=== PATIENT | female | born 1945 | race Caucasian/White ===

== ENCOUNTER 2020-03-06 18:00 | Inpatient (IN) ==
[2020-03-06 19:15] LABS: ABG Base Excess 3.1 MMOL/L (-2.5-2.5); ABG HCO3 27.1 MMOL/L (20-26); ABG Oxygen Saturation 94.2 % (95-100); ABG PCO2 39.1 MM HG (35-48); ABG PO2 70.7 MM HG (80-95); ABG TCO2 24.1 MMOL/L (23-27)
[2020-03-06 19:36] LABS: Basophils % 0.2 % (0.0-0.8); Hematocrit 35.7 VOL% (35.7-47.0); Hemoglobin 11.8 GM/DL (12.0-16.0); Immature Granulocytes % 0.4 %; Immature Granulocytes Absolute 0.02 #; Lymphocytes % 20.5 % (21.3-54.2); Mean Corpuscular HGB Conc 33.1 GM/DL (32-36); Mean Corpuscular Volume 89.3 FL (87-102); Mean Platelet Volume 10.9 FL (9.6-12.0); Neutrophils % 70.9 % (38.7-73.9); Platelet Count 169 T/CUMM (130-400); Red Cell Distribution Width 12.8 % (9.3-17.3); White Blood Count 4.7 T/CUMM (4-12)
[2020-03-06 20:06] LABS: Alanine Aminotransferase 38 U/L (13-56); Albumin 3.2 G/DL (3.4-5.0); Alkaline Phosphatase 87 U/L (45-117); Aspartate Amino Transferase 36 U/L (0-37); Bilirubin,Total < 0.39 MG/DL (0.2-1.0); Blood Urea Nitrogen 17 MG/DL (7-18); Calcium 8.3 MG/DL (8.5-10.1); Estimated Glom Filtration Rate 51 ML/MIN; Ferritin 224.8 ng/ml (8-252); Glucose 160 MG/DL (74-106); Total Protein 7.2 G/DL (6.4-8.3)
[2020-03-06] MEDS ORDERED: AZITHROMYCIN INJ 500 MG in SODIUM CHLORIDE 0.9% 250 ML IV STA (20:17)
[2020-03-06] MEDS ORDERED: DEXAMETHASONE 10 MG/1 ML VIAL IV STA (20:17)
[2020-03-06] MEDS ORDERED: POTASSIUM CHLORIDE 20 MEQ/15 ML UDCUP PO ONE (20:17)
[2020-03-06] MEDS: SODIUM CHLORIDE 0.9% 1,000 ML IV SCH (21:00)
[2020-03-06] MEDS ORDERED: AZITHROMYCIN INJ 500 MG in SODIUM CHLORIDE 0.9% 250 ML IV SCH (21:00)
[2020-03-07] MEDS ORDERED: SODIUM CHLORIDE 0.9% 1,000 ML IV STA (00:56)
[2020-03-07] MEDS: SODIUM CHLORIDE 0.9% 1,000 ML IV SCH ×3 (05:59→21:47)
[2020-03-07 06:29] LABS: Basophils % 0.3 % (0.0-0.8); Hematocrit 34.3 VOL% (35.7-47.0); Hemoglobin 11.2 GM/DL (12.0-16.0); Immature Granulocytes % 1.2 %; Immature Granulocytes Absolute 0.04 #; Lymphocytes # 0.7 10*3/uL (1.4-4.0); Lymphocytes % 22.1 % (21.3-54.2); Mean Corpuscular HGB Conc 32.7 GM/DL (32-36); Mean Corpuscular Volume 92.2 FL (87-102); Mean Platelet Volume 11.4 FL (9.6-12.0); Monocytes % 5.7 % (1.7-12.7); Neutrophils % 70.7 % (38.7-73.9); Platelet Count 136 T/CUMM (130-400); Red Blood Count 3.72 MC/CUMM (3.8-5.5); Red Cell Distribution Width 13.1 % (9.3-17.3); White Blood Count 3.3 T/CUMM (4-12)
[2020-03-07 06:30] LABS: Alanine Aminotransferase 32 U/L (13-56); Albumin 2.7 G/DL (3.4-5.0); Alkaline Phosphatase 83 U/L (45-117); Aspartate Amino Transferase 30 U/L (0-37); Bilirubin,Total < 0.39 MG/DL (0.2-1.0); Blood Urea Nitrogen 16 MG/DL (7-18); Calcium 7.8 MG/DL (8.5-10.1); Estimated Glom Filtration Rate 58 ML/MIN; Glucose 206 MG/DL (74-106); Osmolality,Calculated 289.1 MOS/KG (273-304); Total Protein 6.6 G/DL (6.4-8.3)
[2020-03-07] MEDS ORDERED: DEXAMETHASONE 10 MG/1 ML VIAL IV SCH (09:00)
[2020-03-07] MEDS ORDERED: LORATADINE 10 MG TABLET PO PRN (09:23)
[2020-03-07] MEDS: REMDESIVIR 200 MG in SODIUM CHLORIDE 0.9% 210 ML IV ONE ×2 (11:12→13:20)
[2020-03-07] MEDS: DEXAMETHASONE 10 MG/1 ML VIAL IV SCH (13:20)
[2020-03-07] MEDS: PANTOPRAZOLE 40 MG TABLET PO SCH (13:20)
[2020-03-07] MEDS ORDERED: DICYCLOMINE 10 MG CAPSULE PO PRN (21:07)
[2020-03-07] MEDS ORDERED: ChlordiazePOXIDE/CLIDINIUM 5-2.5 MG CAPSULE PO SCH ×2 (21:24→21:30)
[2020-03-07] MEDS: ONDANSETRON 4 MG TABLET PO SCH (21:46)
[2020-03-07] MEDS: LOSARTAN/HCTZ 50-12.5 MG TABLET PO SCH (21:46)
[2020-03-07] MEDS: AZITHROMYCIN INJ 500 MG in SODIUM CHLORIDE 0.9% 250 ML IV SCH (22:22)
[2020-03-07] MEDS: SIMVASTATIN 20 MG TABLET PO SCH (22:22)
[2020-03-07] MEDS: ASPIRIN EC 81 MG TABLET PO SCH (22:22)
[2020-03-07] MEDS: CLORAZEPATE 3.75 MG TABLET PO PRN (22:23)
[2020-03-08] MEDS: ACETAMINOPHEN 325 MG TABLET PO PRN ×3 (00:13→20:20)
[2020-03-08] MEDS: ONDANSETRON 4 MG TABLET PO SCH ×4 (00:14→17:51)
[2020-03-08] MEDS: ONDANSETRON 4 MG/2 ML VIAL IV PRN ×2 (00:14→05:41)
[2020-03-08] MEDS: SODIUM CHLORIDE 0.9% 1,000 ML IV SCH (03:48)
[2020-03-08 05:57] LABS: Albumin 2.8 G/DL (3.4-5.0); Bilirubin,Total 0.4 MG/DL (0.2-1.0); Calcium 7.2 MG/DL (8.5-10.1); Osmolality,Calculated 286.1 MOS/KG (273-304); Total Protein 6.9 G/DL (6.4-8.3)
[2020-03-08 06:08] LABS: Calcium 7.4 MG/DL (8.5-10.1); Osmolality,Calculated 286.1 MOS/KG (273-304)
[2020-03-08 06:11] LABS: Basophils % 0.3 % (0.0-0.8); Eosinophils % 0.1 % (0.00-10.9); Hematocrit 39.2 VOL% (35.7-47.0); Hemoglobin 11.8 GM/DL (12.0-16.0); Immature Granulocytes % 0.5 %; Immature Granulocytes Absolute 0.04 #; Lymphocytes # 2.4 10*3/uL (1.4-4.0); Mean Corpuscular HGB Conc 30.1 GM/DL (32-36); Mean Corpuscular Volume 96.6 FL (87-102); Mean Platelet Volume 11.4 FL (9.6-12.0); Monocytes % 4.7 % (1.7-12.7); Neutrophils % 63.4 % (38.7-73.9); Platelet Count 163 T/CUMM (130-400); Red Blood Count 4.06 MC/CUMM (3.8-5.5); White Blood Count 7.7 T/CUMM (4-12)
[2020-03-08] MEDS ORDERED: NON-FORMULARY MEDICATION (Omeprazole 20 mg capsule,delayed release(DR/EC)) PO SCH (09:00)
[2020-03-08] MEDS ORDERED: ChlordiazePOXIDE/CLIDINIUM 5-2.5 MG CAPSULE PO SCH ×2 (09:00)
[2020-03-08] MEDS: CHOLECALCIFEROL 5,000 UNIT TABLET PO SCH (10:04)
[2020-03-08] MEDS: DICLOFENAC 1.3% PATCH 5/PACK TRANSDERM PRN (10:04)
[2020-03-08] MEDS: metFORMIN 500 MG TABLET PO SCH ×2 (10:04→17:51)
[2020-03-08] MEDS: CETIRIZINE 10 MG TABLET PO SCH (10:04)
[2020-03-08] MEDS: CLORAZEPATE 3.75 MG TABLET PO PRN ×2 (10:05→20:20)
[2020-03-08] MEDS: LOSARTAN/HCTZ 50-12.5 MG TABLET PO SCH (10:05)
[2020-03-08] MEDS: PANTOPRAZOLE 40 MG TABLET PO SCH (10:05)
[2020-03-08] MEDS: DEXAMETHASONE 10 MG/1 ML VIAL IV SCH (10:05)
[2020-03-08] MEDS: atenoloL 50 MG TABLET PO SCH (10:05)
[2020-03-08] MEDS: REMDESIVIR 100 MG in SODIUM CHLORIDE 0.9% 100 ML IV SCH (10:07)
[2020-03-08] MEDS: cycloSPORINE OPH EMUL 1 VIAL BOTH EYES SCH (11:42)
[2020-03-08] MEDS: INSULIN LISPRO 100 UNIT/ML SUBCUT SCH ×3 (11:43→21:00)
[2020-03-08] MEDS: FAMOTIDINE 20 MG TABLET PO SCH (11:43)
[2020-03-08] MEDS: ASCORBIC ACID 500 MG TABLET PO SCH (11:43)
[2020-03-08] MEDS: ZINC GLUCONATE 50 MG TABLET PO SCH (11:43)
[2020-03-08] MEDS: MAGNESIUM SULF INJ 2 GM, POTASSIUM CHLORIDE INJ 20 MEQ in SODIUM CHLORIDE 0.9% 1,000 ML IV SCH ×2 (13:00→21:01)
[2020-03-08] MEDS: SIMVASTATIN 20 MG TABLET PO SCH (20:20)
[2020-03-08] MEDS: ASPIRIN EC 81 MG TABLET PO SCH (20:20)
[2020-03-08] MEDS: AZITHROMYCIN INJ 500 MG in SODIUM CHLORIDE 0.9% 250 ML IV SCH (20:20)
[2020-03-09] MEDS: ONDANSETRON 4 MG TABLET PO SCH ×4 (00:05→17:07)
[2020-03-09 00:26] LABS: Bacteria,Urine Occasional /HPF (Few); Bilirubin,Urine Negative (Negative); Blood, Urine Small mg/dL (Negative); Glucose,Urine (UA) Negative (Negative); Ketones,Urine Negative (Negative); Mucus,Urine Occasional /LPF (Occasional); Nitrite,Urine Negative (Negative); Protein,Urine 30 MG/DL; RBC,Urine 2 /HPF (0-4); Squamous Epithelial Cell,Urine Occasional /HPF (0-10); Urine Appearance CLEAR (Clear); Urine Color Yellow (Yellow); Urine Specific Gravity 1.013 (1.001-1.035); Urine Urobilinogen < 2.0 EU/DL (0.2-1.0); WBC,Urine 6 /HPF (0-6)
[2020-03-09 06:25] LABS: Basophils % 0.3 % (0.0-0.8); Eosinophils % 0.1 % (0.00-10.9); Hematocrit 41.8 VOL% (35.7-47.0); Hemoglobin 12.7 GM/DL (12.0-16.0); Immature Granulocytes % 1.2 %; Immature Granulocytes Absolute 0.15 #; Lymphocytes # 0.7 10*3/uL (1.4-4.0); Lymphocytes % 5.4 % (21.3-54.2); Mean Corpuscular HGB Conc 30.4 GM/DL (32-36); Mean Platelet Volume 10.9 FL (9.6-12.0); Monocytes % 3.7 % (1.7-12.7); Neutrophils % 89.3 % (38.7-73.9); Platelet Count 214 T/CUMM (130-400); Red Blood Count 4.31 MC/CUMM (3.8-5.5); Red Cell Distribution Width 13.6 % (9.3-17.3); White Blood Count 12.9 T/CUMM (4-12)
[2020-03-09 06:40] LABS: Albumin 2.7 G/DL (3.4-5.0); Bilirubin,Total 0.6 MG/DL (0.2-1.0); Calcium 7.7 MG/DL (8.5-10.1); Osmolality,Calculated 283.3 MOS/KG (273-304); Total Protein 7.1 G/DL (6.4-8.3)
[2020-03-09 09:02] LABS: Band Neutrophils 3 % (0-10); Lymphocytes 4 % (20-55); Metamyelocytes 1 %; Platelet Estimate Normal; Segmented Neutrophils 85 % (50-85); Total Cells Counted 100
[2020-03-09] MEDS: INSULIN LISPRO 100 UNIT/ML SUBCUT SCH ×4 (09:16→22:24)
[2020-03-09] MEDS: CHOLECALCIFEROL 5,000 UNIT TABLET PO SCH (09:20)
[2020-03-09] MEDS: PANTOPRAZOLE 40 MG TABLET PO SCH (09:20)
[2020-03-09] MEDS: atenoloL 50 MG TABLET PO SCH (09:20)
[2020-03-09] MEDS: ASCORBIC ACID 500 MG TABLET PO SCH (09:20)
[2020-03-09] MEDS: FAMOTIDINE 20 MG TABLET PO SCH (09:20)
[2020-03-09] MEDS: metFORMIN 500 MG TABLET PO SCH ×2 (09:20→17:07)
[2020-03-09] MEDS: ZINC GLUCONATE 50 MG TABLET PO SCH (09:20)
[2020-03-09] MEDS: LOSARTAN/HCTZ 50-12.5 MG TABLET PO SCH (09:20)
[2020-03-09] MEDS: CETIRIZINE 10 MG TABLET PO SCH (09:21)
[2020-03-09] MEDS ORDERED: FUROSEMIDE 40 MG/4 ML VIAL IV ONE (09:22)
[2020-03-09 09:24] LABS: ABG Base Excess 0.5 MMOL/L (-2.5-2.5); ABG HCO3 24.8 MMOL/L (20-26); ABG Oxygen Saturation 95.2 % (95-100); ABG PCO2 57.7 MM HG (35-48); ABG PH 7.297 (7.35-7.45); ABG PO2 80.1 MM HG (80-95); ABG TCO2 25.4 MMOL/L (23-27)
[2020-03-09] MEDS: MAGNESIUM SULF INJ 2 GM, POTASSIUM CHLORIDE INJ 20 MEQ in SODIUM CHLORIDE 0.9% 1,000 ML IV SCH (09:46)
[2020-03-09] MEDS: REMDESIVIR 100 MG in SODIUM CHLORIDE 0.9% 100 ML IV SCH (11:26)
[2020-03-09] MEDS: DEXAMETHASONE 10 MG/1 ML VIAL IV SCH (11:26)
[2020-03-09] MEDS: cycloSPORINE OPH EMUL 1 VIAL BOTH EYES SCH (11:26)
[2020-03-09] MEDS: ASPIRIN EC 81 MG TABLET PO SCH (20:17)
[2020-03-09] MEDS: SIMVASTATIN 20 MG TABLET PO SCH (20:17)
[2020-03-09] MEDS: AZITHROMYCIN INJ 500 MG in SODIUM CHLORIDE 0.9% 250 ML IV SCH (20:18)
[2020-03-09] MEDS: ACETAMINOPHEN 325 MG TABLET PO PRN (21:00)
[2020-03-10] MEDS: ONDANSETRON 4 MG TABLET PO SCH ×4 (01:24→18:02)
[2020-03-10 04:45] LABS: Basophils % 0.2 % (0.0-0.8); Eosinophils % 0.5 % (0.00-10.9); Hematocrit 38.3 VOL% (35.7-47.0); Hemoglobin 11.5 GM/DL (12.0-16.0); Immature Granulocytes % 0.6 %; Immature Granulocytes Absolute 0.05 #; Lymphocytes # 1.7 10*3/uL (1.4-4.0); Lymphocytes % 20.7 % (21.3-54.2); Mean Corpuscular Volume 99.7 FL (87-102); Mean Platelet Volume 11.6 FL (9.6-12.0); Monocytes % 6.3 % (1.7-12.7); Neutrophils % 71.7 % (38.7-73.9); Platelet Count 181 T/CUMM (130-400); Red Blood Count 3.84 MC/CUMM (3.8-5.5); Red Cell Distribution Width 13.4 % (9.3-17.3); White Blood Count 8.4 T/CUMM (4-12)
[2020-03-10 05:17] LABS: Allen Test Positive; Pt O2 Delivery Device BIPAP
[2020-03-10 05:18] LABS: Albumin 2.1 G/DL (3.4-5.0); Bilirubin,Total 0.8 MG/DL (0.2-1.0); Calcium 7.8 MG/DL (8.5-10.1); Osmolality,Calculated 285.1 MOS/KG (273-304); Total Protein 6.4 G/DL (6.4-8.3)
[2020-03-10 05:24] LABS: ABG Base Excess 8.5 MMOL/L (-2.5-2.5); ABG HCO3 32.2 MMOL/L (20-26); ABG Oxygen Saturation 94.2 % (95-100); ABG PCO2 51.7 MM HG (35-48); ABG PO2 69.1 MM HG (80-95); ABG TCO2 30.9 MMOL/L (23-27)
[2020-03-10] MEDS: INSULIN LISPRO 100 UNIT/ML SUBCUT SCH ×4 (07:06→20:18)
[2020-03-10] MEDS: ENOXAPARIN 40 MG/0.4 ML SYRINGE SUBCUT SCH ×2 (08:39→20:16)
[2020-03-10] MEDS: ASCORBIC ACID 500 MG TABLET PO SCH (08:40)
[2020-03-10] MEDS: LOSARTAN/HCTZ 50-12.5 MG TABLET PO SCH (08:40)
[2020-03-10] MEDS: DEXAMETHASONE 10 MG/1 ML VIAL IV SCH (08:40)
[2020-03-10] MEDS: atenoloL 50 MG TABLET PO SCH (08:41)
[2020-03-10] MEDS: CHOLECALCIFEROL 5,000 UNIT TABLET PO SCH (08:41)
[2020-03-10] MEDS: CETIRIZINE 10 MG TABLET PO SCH (08:41)
[2020-03-10] MEDS: FAMOTIDINE 20 MG TABLET PO SCH (08:41)
[2020-03-10] MEDS ORDERED: SODIUM CHLORIDE 0.9% 1,000 ML IV PRN (08:42)
[2020-03-10] MEDS: ZINC GLUCONATE 50 MG TABLET PO SCH (09:08)
[2020-03-10] MEDS: cycloSPORINE OPH EMUL 1 VIAL BOTH EYES SCH (09:10)
[2020-03-10] MEDS: REMDESIVIR 100 MG in SODIUM CHLORIDE 0.9% 100 ML IV SCH (11:14)
[2020-03-10] MEDS ORDERED: POTASSIUM PHOSPHATE 30 MMOL in SODIUM CHLORIDE 0.9% 250 ML IV ONE (17:00)
[2020-03-10] MEDS: ASPIRIN EC 81 MG TABLET PO SCH (20:18)
[2020-03-10] MEDS: SIMVASTATIN 20 MG TABLET PO SCH (20:18)
[2020-03-11] MEDS: ONDANSETRON 4 MG TABLET PO SCH ×5 (00:32→23:58)
[2020-03-11] MEDS: AZITHROMYCIN INJ 500 MG in SODIUM CHLORIDE 0.9% 250 ML IV SCH (02:35)
[2020-03-11 04:07] LABS: Allen Test Positive; Pt O2 Delivery Device BIPAP
[2020-03-11 04:20] LABS: ABG Base Excess 8.3 MMOL/L (-2.5-2.5); ABG HCO3 31.9 MMOL/L (20-26); ABG Oxygen Saturation 92.6 % (95-100); ABG PCO2 54.8 MM HG (35-48); ABG PH 7.413 (7.35-7.45); ABG PO2 67.5 MM HG (80-95); ABG TCO2 30.4 MMOL/L (23-27)
[2020-03-11] MEDS: INSULIN LISPRO 100 UNIT/ML SUBCUT SCH ×4 (07:57→20:01)
[2020-03-11] MEDS: FAMOTIDINE 20 MG TABLET PO SCH (08:01)
[2020-03-11] MEDS: CETIRIZINE 10 MG TABLET PO SCH (08:01)
[2020-03-11] MEDS: ENOXAPARIN 40 MG/0.4 ML SYRINGE SUBCUT SCH ×2 (08:01→20:00)
[2020-03-11] MEDS: atenoloL 50 MG TABLET PO SCH (08:01)
[2020-03-11] MEDS: DEXAMETHASONE 10 MG/1 ML VIAL IV SCH (08:01)
[2020-03-11] MEDS: ZINC GLUCONATE 50 MG TABLET PO SCH (08:01)
[2020-03-11] MEDS: ASCORBIC ACID 500 MG TABLET PO SCH (08:01)
[2020-03-11] MEDS: LOSARTAN/HCTZ 50-12.5 MG TABLET PO SCH (08:02)
[2020-03-11] MEDS: CHOLECALCIFEROL 5,000 UNIT TABLET PO SCH (08:02)
[2020-03-11] MEDS: cycloSPORINE OPH EMUL 1 VIAL BOTH EYES SCH (08:02)
[2020-03-11] MEDS: REMDESIVIR 100 MG in SODIUM CHLORIDE 0.9% 100 ML IV SCH (08:05)
[2020-03-11 09:03] LABS: Basophils % 0.1 % (0.0-0.8); Eosinophils % 0.1 % (0.00-10.9); Hematocrit 36.1 VOL% (35.7-47.0); Hemoglobin 11.4 GM/DL (12.0-16.0); Immature Granulocytes % 0.6 %; Immature Granulocytes Absolute 0.06 #; Lymphocytes % 10.2 % (21.3-54.2); Mean Corpuscular HGB Conc 31.6 GM/DL (32-36); Mean Corpuscular Volume 93.3 FL (87-102); Mean Platelet Volume 11.8 FL (9.6-12.0); Monocytes % 5.1 % (1.7-12.7); Neutrophils % 83.9 % (38.7-73.9); Platelet Count 147 T/CUMM (130-400); Red Blood Count 3.87 MC/CUMM (3.8-5.5); Red Cell Distribution Width 13.2 % (9.3-17.3); White Blood Count 9.8 T/CUMM (4-12)
[2020-03-11 09:32] LABS: Albumin 2.1 G/DL (3.4-5.0); Bilirubin,Total 0.5 MG/DL (0.2-1.0); Calcium 8.4 MG/DL (8.5-10.1); Osmolality,Calculated 289.1 MOS/KG (273-304); Total Protein 6.7 G/DL (6.4-8.3)
[2020-03-11] MEDS: DICLOFENAC 1.3% PATCH 5/PACK TRANSDERM PRN (11:53)
[2020-03-11] MEDS: SIMVASTATIN 20 MG TABLET PO SCH (20:01)
[2020-03-11] MEDS: ASPIRIN EC 81 MG TABLET PO SCH (20:01)
[2020-03-12] MEDS ORDERED: BENZOCAINE/MENTHOL LOZENGE 18/BOX PO PRN (00:35)
[2020-03-12] MEDS ORDERED: PHENOL 1.4% THROAT SPRAY 177 ML BOTTLE PO PRN (00:35)
[2020-03-12 02:40] LABS: ABG Base Excess 10.2 MMOL/L (-2.5-2.5); ABG HCO3 36.7 MMOL/L (20-26); ABG Oxygen Saturation 89.1 % (95-100); ABG PCO2 59.6 MM HG (35-48); ABG PH 7.407 (7.35-7.45); ABG TCO2 38.5 MMOL/L (23-27)
[2020-03-12] MEDS ORDERED: AZITHROMYCIN INJ 500 MG in SODIUM CHLORIDE 0.9% 250 ML IV SCH (03:00)
[2020-03-12 05:17] LABS: Basophils % 0.1 % (0.0-0.8); Hematocrit 35.5 VOL% (35.7-47.0); Hemoglobin 11.3 GM/DL (12.0-16.0); Immature Granulocytes % 0.7 %; Immature Granulocytes Absolute 0.06 #; Lymphocytes % 11.1 % (21.3-54.2); Mean Corpuscular HGB Conc 31.8 GM/DL (32-36); Mean Corpuscular Volume 92.9 FL (87-102); Mean Platelet Volume 11.3 FL (9.6-12.0); Monocytes % 6.4 % (1.7-12.7); Neutrophils % 81.7 % (38.7-73.9); Platelet Count 241 T/CUMM (130-400); Red Blood Count 3.82 MC/CUMM (3.8-5.5); Red Cell Distribution Width 12.6 % (9.3-17.3); White Blood Count 8.7 T/CUMM (4-12)
[2020-03-12] MEDS: ONDANSETRON 4 MG TABLET PO SCH ×3 (05:22→18:04)
[2020-03-12 06:04] LABS: Albumin 2.1 G/DL (3.4-5.0); Bilirubin,Total 0.9 MG/DL (0.2-1.0); Calcium 8.4 MG/DL (8.5-10.1); Total Protein 6.6 G/DL (6.4-8.3)
[2020-03-12] MEDS: INSULIN LISPRO 100 UNIT/ML SUBCUT SCH ×4 (07:37→21:59)
[2020-03-12] MEDS: ENOXAPARIN 40 MG/0.4 ML SYRINGE SUBCUT SCH ×2 (08:13→21:58)
[2020-03-12] MEDS: DEXAMETHASONE 10 MG/1 ML VIAL IV SCH (08:14)
[2020-03-12] MEDS: atenoloL 50 MG TABLET PO SCH (08:16)
[2020-03-12] MEDS: ASCORBIC ACID 500 MG TABLET PO SCH (08:16)
[2020-03-12] MEDS: ZINC GLUCONATE 50 MG TABLET PO SCH (08:16)
[2020-03-12] MEDS: CETIRIZINE 10 MG TABLET PO SCH (08:16)
[2020-03-12] MEDS: cycloSPORINE OPH EMUL 1 VIAL BOTH EYES SCH (08:16)
[2020-03-12] MEDS: FAMOTIDINE 20 MG TABLET PO SCH (08:16)
[2020-03-12] MEDS: LOSARTAN/HCTZ 50-12.5 MG TABLET PO SCH (08:16)
[2020-03-12] MEDS: CHOLECALCIFEROL 5,000 UNIT TABLET PO SCH (08:16)
[2020-03-12] MEDS: cefTRIAXone 1,000 MG in SYRINGE 1 EACH IV SCH (16:50)
[2020-03-12] MEDS: CLORAZEPATE 3.75 MG TABLET PO PRN (17:45)
[2020-03-12] MEDS: SIMVASTATIN 20 MG TABLET PO SCH (21:58)
[2020-03-12] MEDS: ASPIRIN EC 81 MG TABLET PO SCH (21:58)
[2020-03-13] MEDS: ONDANSETRON 4 MG TABLET PO SCH ×4 (00:30→17:22)
[2020-03-13 04:20] LABS: ABG HCO3 35.6 MMOL/L (20-26); ABG Oxygen Saturation 88.4 % (95-100); ABG PCO2 58.4 MM HG (35-48); ABG PH 7.431 (7.35-7.45); ABG PO2 58.9 MM HG (80-95); ABG TCO2 34.7 MMOL/L (23-27)
[2020-03-13 06:27] LABS: Basophils % 0.1 % (0.0-0.8); Eosinophils % 0.1 % (0.00-10.9); Hematocrit 33.6 VOL% (35.7-47.0); Hemoglobin 11.2 GM/DL (12.0-16.0); Immature Granulocytes % 0.9 %; Immature Granulocytes Absolute 0.12 #; Lymphocytes # 1.3 10*3/uL (1.4-4.0); Lymphocytes % 10.1 % (21.3-54.2); Mean Corpuscular HGB Conc 33.3 GM/DL (32-36); Mean Corpuscular Volume 89.6 FL (87-102); Mean Platelet Volume 9.8 FL (9.6-12.0); Monocytes % 6.9 % (1.7-12.7); Neutrophils % 81.9 % (38.7-73.9); Platelet Count 319 T/CUMM (130-400); Red Blood Count 3.75 MC/CUMM (3.8-5.5); Red Cell Distribution Width 12.3 % (9.3-17.3)
[2020-03-13 06:48] LABS: Calcium 8.4 MG/DL (8.5-10.1); Osmolality,Calculated 286.3 MOS/KG (273-304)
[2020-03-13] MEDS: INSULIN LISPRO 100 UNIT/ML SUBCUT SCH ×4 (07:47→20:02)
[2020-03-13] MEDS: LOSARTAN/HCTZ 50-12.5 MG TABLET PO SCH (08:31)
[2020-03-13] MEDS: ENOXAPARIN 40 MG/0.4 ML SYRINGE SUBCUT SCH ×2 (08:31→20:01)
[2020-03-13] MEDS: DEXAMETHASONE 10 MG/1 ML VIAL IV SCH (08:31)
[2020-03-13] MEDS: FAMOTIDINE 20 MG TABLET PO SCH (08:31)
[2020-03-13] MEDS: ZINC GLUCONATE 50 MG TABLET PO SCH (08:33)
[2020-03-13] MEDS: CHOLECALCIFEROL 5,000 UNIT TABLET PO SCH (08:33)
[2020-03-13] MEDS: CETIRIZINE 10 MG TABLET PO SCH (08:33)
[2020-03-13] MEDS: cycloSPORINE OPH EMUL 1 VIAL BOTH EYES SCH (08:33)
[2020-03-13] MEDS: ASCORBIC ACID 500 MG TABLET PO SCH (08:33)
[2020-03-13] MEDS: atenoloL 50 MG TABLET PO SCH (08:33)
[2020-03-13] MEDS ORDERED: FUROSEMIDE 40 MG/4 ML VIAL IV ONE (09:39)
[2020-03-13] MEDS: CLORAZEPATE 3.75 MG TABLET PO PRN (12:00)
[2020-03-13] MEDS: ALBUTEROL INHALER 18 GM INH SCH ×3 (14:03→20:02)
[2020-03-13] MEDS: cefTRIAXone 1,000 MG in SYRINGE 1 EACH IV SCH (16:30)
[2020-03-13] MEDS: ASPIRIN EC 81 MG TABLET PO SCH (20:02)
[2020-03-13] MEDS: SIMVASTATIN 20 MG TABLET PO SCH (20:02)
[2020-03-13] MEDS: ALPRAZolam 0.25 MG TABLET PO PRN (22:10)
[2020-03-14] MEDS: ALBUTEROL INHALER 18 GM INH SCH ×4 (00:10→18:15)
[2020-03-14] MEDS: ONDANSETRON 4 MG TABLET PO SCH ×6 (00:10→23:01)
[2020-03-14 04:16] LABS: Basophils % 0.1 % (0.0-0.8); Eosinophils % 0.4 % (0.00-10.9); Hematocrit 36.8 VOL% (35.7-47.0); Hemoglobin 12.2 GM/DL (12.0-16.0); Immature Granulocytes Absolute 0.11 #; Lymphocytes # 1.4 10*3/uL (1.4-4.0); Lymphocytes % 12.3 % (21.3-54.2); Mean Corpuscular HGB Conc 33.2 GM/DL (32-36); Mean Corpuscular Volume 88.7 FL (87-102); Monocytes % 6.3 % (1.7-12.7); Neutrophils % 79.9 % (38.7-73.9); Platelet Count 352 T/CUMM (130-400); Red Blood Count 4.15 MC/CUMM (3.8-5.5); Red Cell Distribution Width 12.1 % (9.3-17.3); White Blood Count 11.4 T/CUMM (4-12)
[2020-03-14 04:41] LABS: Calcium 8.5 MG/DL (8.5-10.1)
[2020-03-14 04:44] LABS: Osmolality,Calculated 277.1 MOS/KG (273-304)
[2020-03-14 04:50] LABS: ABG Base Excess 19.9 MMOL/L (-2.5-2.5); ABG HCO3 46.3 MMOL/L (20-26); ABG Oxygen Saturation 97.3 % (95-100); ABG PCO2 60.3 MM HG (35-48); ABG PH 7.503 (7.35-7.45); ABG PO2 98.8 MM HG (80-95); ABG TCO2 48.1 MMOL/L (23-27); Allen Test Positive; Pt O2 Delivery Device BIPAP
[2020-03-14] MEDS ORDERED: FUROSEMIDE 40 MG/4 ML VIAL IV ONE (08:00)
[2020-03-14] MEDS: INSULIN LISPRO 100 UNIT/ML SUBCUT SCH ×4 (08:11→21:12)
[2020-03-14] MEDS: DEXAMETHASONE 10 MG/1 ML VIAL IV SCH (08:39)
[2020-03-14] MEDS: cycloSPORINE OPH EMUL 1 VIAL BOTH EYES SCH (08:40)
[2020-03-14] MEDS: ENOXAPARIN 40 MG/0.4 ML SYRINGE SUBCUT SCH ×2 (08:40→20:37)
[2020-03-14] MEDS: LOSARTAN/HCTZ 50-12.5 MG TABLET PO SCH (08:41)
[2020-03-14] MEDS: ZINC GLUCONATE 50 MG TABLET PO SCH (08:41)
[2020-03-14] MEDS: CHOLECALCIFEROL 5,000 UNIT TABLET PO SCH (08:41)
[2020-03-14] MEDS: FAMOTIDINE 20 MG TABLET PO SCH (08:42)
[2020-03-14] MEDS: ASCORBIC ACID 500 MG TABLET PO SCH (08:42)
[2020-03-14] MEDS: atenoloL 50 MG TABLET PO SCH (08:42)
[2020-03-14] MEDS: CETIRIZINE 10 MG TABLET PO SCH (09:39)
[2020-03-14] MEDS: POTASSIUM CHLORIDE 20 MEQ TABLET PO PRN ×3 (16:30→20:37)
[2020-03-14] MEDS: cefTRIAXone 1,000 MG in SYRINGE 1 EACH IV SCH (16:50)
[2020-03-14] MEDS: SIMVASTATIN 20 MG TABLET PO SCH (20:37)
[2020-03-14] MEDS: ASPIRIN EC 81 MG TABLET PO SCH (20:37)
[2020-03-14] MEDS: ALPRAZolam 0.25 MG TABLET PO PRN (22:49)
[2020-03-15] MEDS: ALBUTEROL INHALER 18 GM INH SCH ×4 (01:47→18:00)
[2020-03-15 03:05] LABS: ABG Base Excess 20.4 MMOL/L (-2.5-2.5); ABG HCO3 47.2 MMOL/L (20-26); ABG Oxygen Saturation 93.6 % (95-100); ABG PH 7.499 (7.35-7.45); ABG PO2 69.4 MM HG (80-95); ABG TCO2 49.1 MMOL/L (23-27); Allen Test Positive; Pt O2 Delivery Device BIPAP
[2020-03-15 04:37] LABS: Basophils % 0.2 % (0.0-0.8); Eosinophils # 0.2 10*3/uL (0.0-0.87); Eosinophils % 1.6 % (0.00-10.9); Hematocrit 39.4 VOL% (35.7-47.0); Hemoglobin 12.8 GM/DL (12.0-16.0); Immature Granulocytes % 1.2 %; Immature Granulocytes Absolute 0.15 #; Lymphocytes # 1.9 10*3/uL (1.4-4.0); Lymphocytes % 14.5 % (21.3-54.2); Mean Corpuscular HGB Conc 32.5 GM/DL (32-36); Mean Corpuscular Volume 89.7 FL (87-102); Mean Platelet Volume 10.1 FL (9.6-12.0); Monocytes % 4.7 % (1.7-12.7); Neutrophils % 77.8 % (38.7-73.9); Platelet Count 375 T/CUMM (130-400); Red Blood Count 4.39 MC/CUMM (3.8-5.5); Red Cell Distribution Width 12.2 % (9.3-17.3); White Blood Count 12.8 T/CUMM (4-12)
[2020-03-15 05:00] LABS: Albumin 2.2 G/DL (3.4-5.0); Bilirubin,Total 0.5 MG/DL (0.2-1.0); Calcium 9.1 MG/DL (8.5-10.1); Osmolality,Calculated 279.7 MOS/KG (273-304); Total Protein 7.5 G/DL (6.4-8.3)
[2020-03-15] MEDS: ONDANSETRON 4 MG TABLET PO SCH ×4 (06:30→23:24)
[2020-03-15] MEDS: INSULIN LISPRO 100 UNIT/ML SUBCUT SCH ×4 (07:07→21:02)
[2020-03-15] MEDS: FAMOTIDINE 20 MG TABLET PO SCH (08:27)
[2020-03-15] MEDS: atenoloL 50 MG TABLET PO SCH (08:27)
[2020-03-15] MEDS: DEXAMETHASONE 10 MG/1 ML VIAL IV SCH (08:27)
[2020-03-15] MEDS: ENOXAPARIN 40 MG/0.4 ML SYRINGE SUBCUT SCH ×2 (08:27→20:36)
[2020-03-15] MEDS: cycloSPORINE OPH EMUL 1 VIAL BOTH EYES SCH (08:27)
[2020-03-15] MEDS: LOSARTAN/HCTZ 50-12.5 MG TABLET PO SCH (08:27)
[2020-03-15] MEDS: ASCORBIC ACID 500 MG TABLET PO SCH (08:28)
[2020-03-15] MEDS: CHOLECALCIFEROL 5,000 UNIT TABLET PO SCH (08:28)
[2020-03-15] MEDS: CETIRIZINE 10 MG TABLET PO SCH (08:28)
[2020-03-15] MEDS: ZINC GLUCONATE 50 MG TABLET PO SCH (08:28)
[2020-03-15] MEDS: acetaZOLAMIDE 250 MG TABLET PO SCH ×2 (12:54→20:37)
[2020-03-15] MEDS: cefTRIAXone 1,000 MG in SYRINGE 1 EACH IV SCH (16:24)
[2020-03-15] MEDS: ASPIRIN EC 81 MG TABLET PO SCH (20:37)
[2020-03-15] MEDS: SIMVASTATIN 20 MG TABLET PO SCH (20:37)
[2020-03-15] MEDS: ALPRAZolam 0.25 MG TABLET PO PRN (20:59)
[2020-03-16] MEDS: ALBUTEROL INHALER 18 GM INH SCH ×4 (00:27→18:20)
[2020-03-16 04:07] LABS: Basophils % 0.2 % (0.0-0.8); Eosinophils # 0.1 10*3/uL (0.0-0.87); Eosinophils % 1.3 % (0.00-10.9); Hemoglobin 12.5 GM/DL (12.0-16.0); Immature Granulocytes % 1.8 %; Immature Granulocytes Absolute 0.19 #; Lymphocytes # 1.2 10*3/uL (1.4-4.0); Mean Corpuscular HGB Conc 32.1 GM/DL (32-36); Mean Corpuscular Volume 90.9 FL (87-102); Mean Platelet Volume 10.4 FL (9.6-12.0); Monocytes % 5.1 % (1.7-12.7); Neutrophils % 80.6 % (38.7-73.9); Platelet Count 381 T/CUMM (130-400); Red Blood Count 4.29 MC/CUMM (3.8-5.5); Red Cell Distribution Width 12.4 % (9.3-17.3); White Blood Count 10.6 T/CUMM (4-12)
[2020-03-16 04:22] LABS: Calcium 8.8 MG/DL (8.5-10.1); Osmolality,Calculated 277.1 MOS/KG (273-304)
[2020-03-16 04:34] LABS: ABG HCO3 33.7 MMOL/L (20-26); ABG Oxygen Saturation 97.1 % (95-100); ABG PCO2 54.5 MM HG (35-48); ABG PH 7.432 (7.35-7.45); ABG PO2 98.7 MM HG (80-95); ABG TCO2 31.9 MMOL/L (23-27); Allen Test Positive; Pt O2 Delivery Device BIPAP
[2020-03-16] MEDS: ONDANSETRON 4 MG TABLET PO SCH ×3 (06:28→17:36)
[2020-03-16] MEDS: INSULIN LISPRO 100 UNIT/ML SUBCUT SCH ×4 (07:33→20:55)
[2020-03-16] MEDS: ENOXAPARIN 40 MG/0.4 ML SYRINGE SUBCUT SCH ×2 (08:00→20:55)
[2020-03-16] MEDS: ZINC GLUCONATE 50 MG TABLET PO SCH (08:00)
[2020-03-16] MEDS: acetaZOLAMIDE 250 MG TABLET PO SCH ×2 (08:00→20:55)
[2020-03-16] MEDS: FAMOTIDINE 20 MG TABLET PO SCH (08:00)
[2020-03-16] MEDS: DEXAMETHASONE 10 MG/1 ML VIAL IV SCH (08:00)
[2020-03-16] MEDS: CHOLECALCIFEROL 5,000 UNIT TABLET PO SCH (08:01)
[2020-03-16] MEDS: CETIRIZINE 10 MG TABLET PO SCH (08:01)
[2020-03-16] MEDS: cycloSPORINE OPH EMUL 1 VIAL BOTH EYES SCH (08:01)
[2020-03-16] MEDS: ASCORBIC ACID 500 MG TABLET PO SCH (08:01)
[2020-03-16] MEDS: atenoloL 50 MG TABLET PO SCH (08:01)
[2020-03-16] MEDS: LOSARTAN/HCTZ 50-12.5 MG TABLET PO SCH (08:02)
[2020-03-16] MEDS: POTASSIUM CHLORIDE 20 MEQ TABLET PO PRN (11:31)
[2020-03-16] MEDS: cefTRIAXone 1,000 MG in SYRINGE 1 EACH IV SCH (16:10)
[2020-03-16] MEDS: SIMVASTATIN 20 MG TABLET PO SCH (20:55)
[2020-03-16] MEDS: ASPIRIN EC 81 MG TABLET PO SCH (20:55)
[2020-03-17] MEDS: ALBUTEROL INHALER 18 GM INH SCH ×4 (00:45→18:18)
[2020-03-17] MEDS: ONDANSETRON 4 MG TABLET PO SCH ×4 (00:45→17:50)
[2020-03-17 03:10] LABS: ABG Base Excess 6.2 MMOL/L (-2.5-2.5); ABG Oxygen Saturation 94.7 % (95-100); ABG PCO2 47.4 MM HG (35-48); ABG PH 7.431 (7.35-7.45); ABG PO2 76.6 MM HG (80-95); ABG TCO2 27.9 MMOL/L (23-27); Allen Test Positive; Pt O2 Delivery Device Other
[2020-03-17 05:22] LABS: Basophils % 0.2 % (0.0-0.8); Eosinophils # 0.3 10*3/uL (0.0-0.87); Eosinophils % 2.9 % (0.00-10.9); Hematocrit 37.3 VOL% (35.7-47.0); Hemoglobin 12.1 GM/DL (12.0-16.0); Immature Granulocytes % 1.3 %; Immature Granulocytes Absolute 0.14 #; Lymphocytes # 1.6 10*3/uL (1.4-4.0); Lymphocytes % 15.4 % (21.3-54.2); Mean Corpuscular HGB Conc 32.4 GM/DL (32-36); Mean Corpuscular Volume 90.1 FL (87-102); Mean Platelet Volume 10.5 FL (9.6-12.0); Monocytes % 6.6 % (1.7-12.7); Neutrophils % 73.6 % (38.7-73.9); Platelet Count 409 T/CUMM (130-400); Red Blood Count 4.14 MC/CUMM (3.8-5.5); Red Cell Distribution Width 12.3 % (9.3-17.3); White Blood Count 10.5 T/CUMM (4-12)
[2020-03-17 05:39] LABS: Calcium 8.6 MG/DL (8.5-10.1)
[2020-03-17] MEDS: INSULIN LISPRO 100 UNIT/ML SUBCUT SCH ×4 (10:04→21:15)
[2020-03-17] MEDS: CHOLECALCIFEROL 5,000 UNIT TABLET PO SCH (10:20)
[2020-03-17] MEDS: CETIRIZINE 10 MG TABLET PO SCH (10:20)
[2020-03-17] MEDS: ENOXAPARIN 40 MG/0.4 ML SYRINGE SUBCUT SCH ×2 (10:20→21:15)
[2020-03-17] MEDS: acetaZOLAMIDE 250 MG TABLET PO SCH (10:20)
[2020-03-17] MEDS: ZINC GLUCONATE 50 MG TABLET PO SCH (10:20)
[2020-03-17] MEDS: FAMOTIDINE 20 MG TABLET PO SCH (10:20)
[2020-03-17] MEDS: DEXAMETHASONE 10 MG/1 ML VIAL IV SCH (10:20)
[2020-03-17] MEDS: cycloSPORINE OPH EMUL 1 VIAL BOTH EYES SCH (10:20)
[2020-03-17] MEDS: ASCORBIC ACID 500 MG TABLET PO SCH (10:20)
[2020-03-17] MEDS: atenoloL 50 MG TABLET PO SCH (11:45)
[2020-03-17] MEDS: cefTRIAXone 1,000 MG in SYRINGE 1 EACH IV SCH (15:41)
[2020-03-17] MEDS: ASPIRIN EC 81 MG TABLET PO SCH (21:15)
[2020-03-17] MEDS: SIMVASTATIN 20 MG TABLET PO SCH (21:15)
[2020-03-18] MEDS: ONDANSETRON 4 MG TABLET PO SCH ×4 (00:45→18:20)
[2020-03-18] MEDS: ALBUTEROL INHALER 18 GM INH SCH ×4 (01:45→20:45)
[2020-03-18 04:41] LABS: Basophils % 0.1 % (0.0-0.8); Eosinophils # 0.2 10*3/uL (0.0-0.87); Eosinophils % 2.5 % (0.00-10.9); Hematocrit 37.2 VOL% (35.7-47.0); Hemoglobin 11.9 GM/DL (12.0-16.0); Immature Granulocytes % 1.2 %; Immature Granulocytes Absolute 0.11 #; Lymphocytes # 1.4 10*3/uL (1.4-4.0); Mean Corpuscular Volume 90.1 FL (87-102); Mean Platelet Volume 10.2 FL (9.6-12.0); Monocytes % 8.6 % (1.7-12.7); Neutrophils % 71.6 % (38.7-73.9); Platelet Count 400 T/CUMM (130-400); Red Blood Count 4.13 MC/CUMM (3.8-5.5); Red Cell Distribution Width 12.5 % (9.3-17.3); White Blood Count 8.9 T/CUMM (4-12)
[2020-03-18 05:11] LABS: Calcium 8.7 MG/DL (8.5-10.1); Osmolality,Calculated 275.2 MOS/KG (273-304)
[2020-03-18] MEDS: INSULIN LISPRO 100 UNIT/ML SUBCUT SCH ×4 (08:30→20:45)
[2020-03-18] MEDS: FAMOTIDINE 20 MG TABLET PO SCH (09:01)
[2020-03-18] MEDS: cycloSPORINE OPH EMUL 1 VIAL BOTH EYES SCH (09:01)
[2020-03-18] MEDS: ASCORBIC ACID 500 MG TABLET PO SCH (09:01)
[2020-03-18] MEDS: atenoloL 50 MG TABLET PO SCH (09:01)
[2020-03-18] MEDS: ZINC GLUCONATE 50 MG TABLET PO SCH (09:01)
[2020-03-18] MEDS: CETIRIZINE 10 MG TABLET PO SCH (09:01)
[2020-03-18] MEDS: CHOLECALCIFEROL 5,000 UNIT TABLET PO SCH (09:01)
[2020-03-18] MEDS: DEXAMETHASONE 10 MG/1 ML VIAL IV SCH (09:01)
[2020-03-18] MEDS: ENOXAPARIN 40 MG/0.4 ML SYRINGE SUBCUT SCH ×2 (09:04→20:45)
[2020-03-18] MEDS ORDERED: MAGNESIUM HYDROXIDE SUSP 30 ML UDCUP PO PRN (16:12)
[2020-03-18] MEDS: cefTRIAXone 1,000 MG in SYRINGE 1 EACH IV SCH (16:30)
[2020-03-18] MEDS: SIMVASTATIN 20 MG TABLET PO SCH (20:45)
[2020-03-18] MEDS: ASPIRIN EC 81 MG TABLET PO SCH (20:45)
[2020-03-19] MEDS: ALBUTEROL INHALER 18 GM INH SCH ×3 (00:15→12:22)
[2020-03-19] MEDS: ONDANSETRON 4 MG TABLET PO SCH ×3 (00:15→12:20)
[2020-03-19 06:05] LABS: Basophils % 0.2 % (0.0-0.8); Eosinophils # 0.2 10*3/uL (0.0-0.87); Eosinophils % 2.2 % (0.00-10.9); Hemoglobin 11.8 GM/DL (12.0-16.0); Immature Granulocytes % 1.4 %; Immature Granulocytes Absolute 0.15 #; Lymphocytes # 2.2 10*3/uL (1.4-4.0); Lymphocytes % 19.5 % (21.3-54.2); Mean Corpuscular HGB Conc 32.8 GM/DL (32-36); Mean Corpuscular Volume 89.6 FL (87-102); Mean Platelet Volume 10.4 FL (9.6-12.0); Monocytes % 9.4 % (1.7-12.7); Neutrophils % 67.3 % (38.7-73.9); Platelet Count 401 T/CUMM (130-400); Red Blood Count 4.02 MC/CUMM (3.8-5.5); Red Cell Distribution Width 12.3 % (9.3-17.3); White Blood Count 11.1 T/CUMM (4-12)
[2020-03-19 06:17] LABS: Calcium 8.6 MG/DL (8.5-10.1); Osmolality,Calculated 284.4 MOS/KG (273-304)
[2020-03-19] MEDS ORDERED: DEXAMETHASONE 4 MG/1 ML VIAL IV SCH (08:00)
[2020-03-19] MEDS: INSULIN LISPRO 100 UNIT/ML SUBCUT SCH ×2 (08:21→12:20)
[2020-03-19] MEDS: CETIRIZINE 10 MG TABLET PO SCH (08:22)
[2020-03-19] MEDS: FAMOTIDINE 20 MG TABLET PO SCH (08:22)
[2020-03-19] MEDS: cycloSPORINE OPH EMUL 1 VIAL BOTH EYES SCH (08:22)
[2020-03-19] MEDS: ENOXAPARIN 40 MG/0.4 ML SYRINGE SUBCUT SCH (08:22)
[2020-03-19] MEDS: ASCORBIC ACID 500 MG TABLET PO SCH (08:22)
[2020-03-19] MEDS: CHOLECALCIFEROL 5,000 UNIT TABLET PO SCH (08:22)
[2020-03-19] MEDS: atenoloL 50 MG TABLET PO SCH (08:22)
[2020-03-19] MEDS: ZINC GLUCONATE 50 MG TABLET PO SCH (08:22)
[2020-03-19 11:57] VITALS: BP 116/56
== END 2020-03-19 15:44 | disposition hospice, home (50) | DRG 177 ==
LOC: N.EDINP 18:00 → N.2E 18:00 → N.ED 18:00 → N.EDINP 03-07 09:27 → SUATTDRO 03-07 14:49 → N.CC 03-09 10:37 → N.2E 03-16 16:43
PROVIDERS: ADMIT Family Medicine; ATTEND Family Medicine